=== PATIENT | male | born 1955 | race Caucasian/White ===

== ENCOUNTER 2020-03-31 12:02 | Day surgery (SDC) | payer MEDICARE ==
[~2020-03-31] VITALS: Ht 188 cm; Wt 92.2 kg
[~2020-03-31 12:02] MED LIST: Aspir 8181 MG PO; FENO145 PO; Humalog100 UNIT/1 SC; LOSA25 PO; ONGLYZA5 MG PO; Pravastatin Sod80 MG PO
== END 2020-03-31 15:01 | disposition home or self-care (01) ==
LOC: ORSCSDS 12:02
PROVIDERS: Internal Medicine Gastroenterology
PROC: 0DBL8ZX Excision of Transverse Colon, Via Natural or Artificial Opening Endoscopic, Diagnostic (ICD-10-PCS; principal; 2020-03-31 13:30)
DX: Z12.11 Encounter for screening for malignant neoplasm of colon (principal); D12.3 Benign neoplasm of transverse colon; K64.8 Other hemorrhoids; E11.9 Type 2 diabetes mellitus without complications; I10 Essential (primary) hypertension; Z87.891 Personal history of nicotine dependence; Z79.82 Long term (current) use of aspirin; Z79.4 Long term (current) use of insulin; Z79.899 Other long term (current) drug therapy
CPT/HCPCS: 82947; 88305; J2704; J7120

== ENCOUNTER 2021-05-08 09:27 | Emergency (ER) | payer MEDICARE ==
[~2021-05-08] VITALS: Ht 188 cm; Wt 90.7 kg
[2021-05-08 09:59] LABS: BASOPHILS ABSOLUTE AUTO 0.08 K/mm3 (0.00-0.23); BASOPHILS PERCENT AUTO 1 % (0-2); EOSINOPHILS ABSOLUTE AUTO 0.12 K/mm3 (0.00-0.68); EOSINOPHILS PERCENT AUTO 1 % (0-6); Hematocrit 48.3 % (37.0-53.0); Hemoglobin 16.5 g/dL (13.5-17.5); IMMATURE GRAN ABSOLUTE AUTO 0.07 K/mm3 (0.00-0.10); IMMATURE GRAN PERCENT AUTO 1 % (0-1); LYMPHOCYTES ABSOLUTE AUTO 2.31 K/mm3 (0.84-5.20); LYMPHOCYTES PERCENT AUTO 18 % (21-46); MONOCYTES ABSOLUTE AUTO 0.65 K/mm3 (0.16-1.47); MONOCYTES PERCENT AUTO 5 % (4-13); Mean Corpuscular HGB 27.1 pg (26.0-34.0); Mean Corpuscular HGB Conc 34.2 g/dL (31.5-36.5); Mean Corpuscular Volume 79 fL (80-100); Mean Platelet Volume 10.9 fL (9.1-12.4); NEUTROPHILS ABSOLUTE AUTO 9.62 K/mm3 (1.96-9.15); NEUTROPHILS PERCENT AUTO 75 % (41-73); Platelet Count 115 K/mm3 (150-400); RDW Coefficient Variation 12.6 % (11.7-14.2); RDW Standard Deviation 35.5 fL (35.1-46.3); Red Blood Cell Count 6.09 M/mm3 (4.30-5.90); White Blood Cell Count 12.85 K/mm3 (4.00-11.30)
[2021-05-08 10:23] LABS: Alanine Aminotransfer (ALT/SGP 32 U/L (12-78); Albumin, Blood 4.3 g/dL (3.4-5.0); Albumin/Globulin Ratio 1.5 (0.8-1.8); Alk Phos 108 U/L (50-136); Anion Gap 7 mmol/L (6-16); Aspartate Aminotrans (AST/SGOT 18 U/L (12-37); Bilirubin, Total 0.9 mg/dL (0.1-1.0); Blood Urea Nitrogen 17 mg/dL (8-24); Bun/Creatinine Ratio 18.2 (12.0-20.0); CO2, Blood 26 mmol/L (21-32); Calcium, Blood 10.8 mg/dL (8.5-10.1); Chloride, Blood 105 mmol/L (98-108); Creatinine, Blood 0.93 mg/dL (0.60-1.20); Globulin, Blood 2.9 g/dL (2.2-4.0); Glomerular Filtration Rate >60 (60-); Glucose, Blood 163 mg/dL (70-99); Potassium, Blood 4.1 mmol/L (3.5-5.5); Sodium, Blood 138 mmol/L (136-145); Total Protein, Blood 7.2 g/dL (6.4-8.2)
[2021-05-08] MEDS ORDERED: Percocet 5-3251 EACH PO (10:56)
== END 2021-05-08 11:47 | disposition home or self-care (01) ==
LOC: ER 09:27
PROVIDERS: Physician Assistant
DX: S22.31XA Fracture of one rib, right side, initial encounter for closed fracture (principal); I10 Essential (primary) hypertension; E11.9 Type 2 diabetes mellitus without complications; Z79.4 Long term (current) use of insulin; Z79.82 Long term (current) use of aspirin; Z79.899 Other long term (current) drug therapy; Z87.891 Personal history of nicotine dependence; W19.XXXA Unspecified fall, initial encounter
CPT/HCPCS: 36415; 71101; 80053; 85025; 96374; 96375; 99284-25; A9270; J1885; J2405; J3010

== ENCOUNTER 2021-05-24 10:36 | Emergency (ER) | payer MEDICARE ==
[~2021-05-24] VITALS: Ht 182.9 cm; Wt 83.9 kg
[~2021-05-24 10:36] MED LIST changes: +Percocet 5-3251 EACH PO
[2021-05-24 11:29] LABS: Source, Urine Catheter
[2021-05-24 11:51] LABS: Appearance, Urine Clear (Clear); Bilirubin, Urine Neg (Neg); Blood, Urine Neg (Neg); Color, Urine Yellow (P-Yellow); Glucose Qualitative, Urine 2+ (Neg); Ketones, Urine 1+ (Neg); Leukocyte Esterase, Urine Neg (Neg); Nitrite, Urine Neg (Neg); Protein, Urine 1+ (Neg); Urobilinogen, Urine NORM (Normal); pH, Urine 6.5 (5.0-8.0)
== END 2021-05-24 12:32 | disposition home or self-care (01) ==
LOC: ER 10:36
PROVIDERS: Physician Assistant
DX: R33.9 Retention of urine, unspecified (principal); Z88.8 Allergy status to other drugs, medicaments and biological substances; Z88.4 Allergy status to anesthetic agent; E11.9 Type 2 diabetes mellitus without complications; I10 Essential (primary) hypertension; Z87.891 Personal history of nicotine dependence
CPT/HCPCS: 51702; 99283-25

== ENCOUNTER 2021-05-27 09:39 | Emergency (ER) | payer MEDICARE ==
[~2021-05-27] VITALS: Ht 188 cm; Wt 83.9 kg
== END 2021-05-27 10:35 | disposition home or self-care (01) ==
LOC: ER 09:39
DX: T83.098A Other mechanical complication of other urinary catheter, initial encounter (principal); I10 Essential (primary) hypertension; E11.9 Type 2 diabetes mellitus without complications; Z79.4 Long term (current) use of insulin; Z79.899 Other long term (current) drug therapy; Z87.891 Personal history of nicotine dependence
CPT/HCPCS: 99283

== ENCOUNTER → 2023-01-30 | Outpatient (CLI) | payer MEDICARE ==
[~2023-01-30] MED LIST changes: +CINA30 PO; +Crestor40 MG PO; +Flomax0.4 MG; +INSULANI; +LOSA25; +PRAM.125
== END ==
LOC: LAB SHORT 12:09 → PLD 12:09
DX: D48.5 Neoplasm of uncertain behavior of skin (principal)
CPT/HCPCS: 88305

== ENCOUNTER → 2023-02-27 | Outpatient (CLI) | payer MEDICARE | LOC: LAB 14:26 → LAB SHORT 14:26 | DX: C44.519 Basal cell carcinoma of skin of other part of trunk (principal) | CPT/HCPCS: 88305 ==

== ENCOUNTER → 2023-03-28 | Outpatient (CLI) | payer MEDICARE ==
[2023-03-28 13:37] LABS: Microalbumin, Random Urine 38.2 mg/L (0.000-20.000)
== END ==
LOC: LAB SHORT 08:00 → LAB 08:00
PROVIDERS: Physician Assistant
DX: E11.65 Type 2 diabetes mellitus with hyperglycemia (principal); Z79.4 Long term (current) use of insulin
CPT/HCPCS: 82043; 82570

== ENCOUNTER 2024-12-27 01:02 | Inpatient (IN) | payer MEDICARE ==
[~2024-12-27] VITALS: Ht 188 cm; Wt 83.9 kg
[~2024-12-27 01:02] MED LIST changes: -INSULANI; +INSULANI SC
[2024-12-27] MEDS ORDERED: GABA300 PO (01:21)
[2024-12-27] MEDS ORDERED: BASAGLAR K100 UNIT/1 SC (01:23)
[2024-12-27] MEDS ORDERED: PRAM.125 PO (01:23)
[2024-12-27] MEDS ORDERED: EZET10 PO (01:24)
[2024-12-27 01:31] LABS: BASOPHILS ABSOLUTE AUTO 0.04 K/mm3 (0.00-0.23); BASOPHILS PERCENT AUTO 0 % (0-2); EOSINOPHILS ABSOLUTE AUTO 0.00 K/mm3 (0.00-0.68); EOSINOPHILS PERCENT AUTO 0 % (0-6); Hematocrit 42.4 % (37.0-53.0); Hemoglobin 14.4 g/dL (13.5-17.5); IMMATURE GRAN ABSOLUTE AUTO 0.06 K/mm3 (0.00-0.10); IMMATURE GRAN PERCENT AUTO 0 % (0-1); LYMPHOCYTES ABSOLUTE AUTO 1.53 K/mm3 (0.84-5.20); LYMPHOCYTES PERCENT AUTO 11 % (21-46); MONOCYTES ABSOLUTE AUTO 0.84 K/mm3 (0.16-1.47); MONOCYTES PERCENT AUTO 6 % (4-13); Mean Corpuscular HGB Conc 34.0 g/dL (31.5-36.5); Mean Corpuscular Volume 79 fL (80-100); NEUTROPHILS ABSOLUTE AUTO 11.63 K/mm3 (1.96-9.15); NEUTROPHILS PERCENT AUTO 82 % (41-73); NRBC ABSOLUTE 0.00 K/mm3 (0.00-0.02); NRBC Auto 0.0 /100 WBC (0.0-0.2); Platelet Count 145 K/mm3 (150-400); RDW Coefficient Variation 12.8 % (11.7-14.2); RDW Standard Deviation 36.1 fL (35.1-46.3)
[2024-12-27 01:54] LABS: Alanine Aminotransfer (ALT/SGP 42.0 U/L (12-78); Albumin, Blood 3.4 g/dL (3.4-5.0); Albumin/Globulin Ratio 1.1 (0.8-1.8); Anion Gap 13.0 mmol/L (3-11); Aspartate Aminotrans (AST/SGOT 15.0 U/L (12-37); Bilirubin, Total 0.9 mg/dL (0.1-1.0); Blood Urea Nitrogen 19.0 mg/dL (8-24); CO2, Blood 22.0 mmol/L (21-32); Calcium, Blood 9.9 mg/dL (8.5-10.1); Chloride, Blood 101.0 mmol/L (98-108); Creatinine, Blood 1.08 mg/dL (0.60-1.20); Globulin, Blood 3.0 g/dL (2.2-4.0); Glucose, Blood 336.0 mg/dL (70-99); Potassium, Blood 4.2 mmol/L (3.5-5.5); Sodium, Blood 132.0 mmol/L (136-145); Total Protein, Blood 6.4 g/dL (6.4-8.2)
[2024-12-27 01:58] LABS: pH Blood Venous 7.53 (7.34-7.37)
[2024-12-27] MEDS ORDERED: NS 1,000 ML IV SCH ×2 (02:10→04:25)
[2024-12-27 02:27] LABS: Source, Urine Clean Catch
[2024-12-27 02:50] LABS: Bilirubin, Urine Neg (Neg); Glucose Qualitative, Urine 4+ (Neg); Ketones, Urine 3+ (Neg); Leukocyte Esterase, Urine 3+ (Neg); Protein, Urine 2+ (Neg); Specific Gravity, Urine 1.015 (1.003-1.022); Urobilinogen, Urine NORM (Normal)
[2024-12-27 03:01] LABS: Color, Urine Pale Yellow (P-Yellow)
[2024-12-27 03:03] LABS: White Blood Cells, Urine 50-100 /hpf (0-5)
[2024-12-27] MEDS ORDERED: CefTRIAXone Sodium 1,000 MG in NS 50 ML IV ONE (03:05)
[2024-12-27] MEDS ORDERED: Insulin Human Regular 100 UNIT in NS 100 ML IV SCH (03:05)
[2024-12-27] MEDS ORDERED: HYDROmorphone HCl/Pf 1MG SYR IV PRN (04:40)
[2024-12-27] MEDS ORDERED: Ondansetron HCl 2 MG / ML 2ML Vial IV PRN (04:50)
[2024-12-27] MEDS ORDERED: NS 1,000 ML IV ONE (05:05)
[2024-12-27] MEDS ORDERED: CefTRIAXone Sodium 1,000 MG in NS 100 ML IV ONE ×2 (05:25→06:30)
[2024-12-27] MEDS ORDERED: MetroNIDAZOLE 500MG/NS 100 ml 100 ML IV SCH (05:27)
[2024-12-27 05:59] VITALS: BP 167/87
[2024-12-27] MEDS ORDERED: Insulin Regular 100 UNIT/ML 10ML Vial SC SCH (06:00)
[2024-12-27] MEDS ORDERED: NS 250 ML IV PRN (06:05)
--- NOTE | 2024-12-27 06:29 | NUR ---
PT ARRIVED @0555 TO THE MEDICAL FLOOR ON A GURNEY AND WAS SLID TO THE HOSPITAL BED WITH FOUR STAFF MEMBERS. PT BROUGHT ALL HIS BELONINGS WITH HIM. CHARGE NURSE RANGEL COMPLETED THE ADMISSION ASSESSMENT, SKIN CHECK WITH THIS [employer] EXECUTIVE. BED AT THE LOWEST POSITION, EDUCATED AD SETTER LIGHT AND FALL PRECAUTIONS. CALL LIGHT W/I REACH.
[2024-12-27 06:50] LABS: BASOPHILS ABSOLUTE AUTO 0.02 K/mm3 (0.00-0.23); BASOPHILS PERCENT AUTO 0 % (0-2); EOSINOPHILS ABSOLUTE AUTO 0.01 K/mm3 (0.00-0.68); EOSINOPHILS PERCENT AUTO 0 % (0-6); Hematocrit 42.5 % (37.0-53.0); Hemoglobin 14.4 g/dL (13.5-17.5); IMMATURE GRAN ABSOLUTE AUTO 0.04 K/mm3 (0.00-0.10); IMMATURE GRAN PERCENT AUTO 0 % (0-1); LYMPHOCYTES ABSOLUTE AUTO 1.98 K/mm3 (0.84-5.20); LYMPHOCYTES PERCENT AUTO 14 % (21-46); MONOCYTES ABSOLUTE AUTO 0.96 K/mm3 (0.16-1.47); MONOCYTES PERCENT AUTO 7 % (4-13); Mean Corpuscular HGB Conc 33.9 g/dL (31.5-36.5); Mean Corpuscular Volume 79 fL (80-100); NEUTROPHILS ABSOLUTE AUTO 10.72 K/mm3 (1.96-9.15); NEUTROPHILS PERCENT AUTO 78 % (41-73); NRBC ABSOLUTE 0.00 K/mm3 (0.00-0.02); NRBC Auto 0.0 /100 WBC (0.0-0.2); Platelet Count 153 K/mm3 (150-400); RDW Coefficient Variation 13.0 % (11.7-14.2); RDW Standard Deviation 36.7 fL (35.1-46.3)
[2024-12-27 07:05] LABS: Alanine Aminotransfer (ALT/SGP 40.0 U/L (12-78); Albumin, Blood 3.7 g/dL (3.4-5.0); Albumin/Globulin Ratio 1.2 (0.8-1.8); Anion Gap 11.0 mmol/L (3-11); Aspartate Aminotrans (AST/SGOT 14.0 U/L (12-37); Bilirubin, Total 0.8 mg/dL (0.1-1.0); Blood Urea Nitrogen 20.0 mg/dL (8-24); CO2, Blood 24.0 mmol/L (21-32); Calcium, Blood 9.9 mg/dL (8.5-10.1); Chloride, Blood 103.0 mmol/L (98-108); Creatinine, Blood 1.03 mg/dL (0.60-1.20); Globulin, Blood 3.1 g/dL (2.2-4.0); Glucose, Blood 267.0 mg/dL (70-99); Potassium, Blood 3.9 mmol/L (3.5-5.5); Sodium, Blood 134.0 mmol/L (136-145); Total Protein, Blood 6.8 g/dL (6.4-8.2)
[2024-12-27 07:43] VITALS: BP 176/93
[2024-12-27] MEDS ORDERED: Enoxaparin 40 MG/0.4 ML SYR SC SCH (09:00)
--- NOTE | 2024-12-27 13:27 | NUR ---
CALLED AND SPOKE WITH DR. SALAS ABOUT POSSIBLE SURGERY WITH NO PLANS FOR TODAY. CALLED DR. BURTON WITH UPDATE AND RECEIVED A DIET ORDER. REQUESTING WATER AT THIS TIME.
[2024-12-27 15:30] VITALS: BP 185/101
--- NOTE | 2024-12-27 17:47 | NUR ---
PT PLEASANT TODAY. PLAN FOR HYDASCAN TOMORROW AM. PT TO BE NPO, INCLUDING NO MEDS, H2O, OR PAIN MEDS FOR HYDASCAN. STARTS MIDNITE. DR SALAS IN ROOM THIS IS TYPED. WILL WAIT UNTIL HYDASCAN RESULTS TO MAKE PLAN. PT ON CLEAR LIQUID DIET AT THIS TIME UNTIL MIDNITE. NO OTHER CONCERNS NOTED. BED IN LOW POSITION, CALL LITE IN REACH, CALLS APPROP
[2024-12-27 18:00] VITALS: BP 173/95
[2024-12-27] MEDS ORDERED: HUMALOG MI100 UNIT/1 SC (18:25)
[2024-12-27 19:41] VITALS: BP 173/97
[2024-12-27 22:15] VITALS: BP 182/98
--- NOTE | 2024-12-27 22:52 | NUR ---
@9858 DR. CAMPOS, ON-CALL HOSPITALIST WAS NOTIFIED R/T PT'S BP, PER CONVERSTATION, DR. CAMPOS WILL LOOK INTO IT. ALSO, NEW ORDER FOR MELATONIN PO 5MG QHS PRN. ENTERED TO [facility], SEE EMAR.
--- NOTE | 2024-12-28 03:35 | NUR ---
SHIFT SUMMARY PT IS NPO SINCE MIDNIGHT. PLANNED HIDASCAN THIS AM APPROXIMATELY @0830. PT DENIES PAIN. IV ABX INFUSED ORDERED. NEW ORDER FOR MELATONIN ADMINISTERED AT HS PER PT REQUEST. PT VOIDING WELL, ACUTE SUAREZ DRAINING YELLOW COLOR URINE. BED AT THE LOWEST POSITION, CALL LIGHT W/I REACH. PT IS A/O X4, ABLE TO MAKE HIS NEEDS KNOWN, PLEASANT AND COOPERATIVE WITH CARE.
[2024-12-28 05:50] LABS: BASOPHILS ABSOLUTE AUTO 0.04 K/mm3 (0.00-0.23); BASOPHILS PERCENT AUTO 0 % (0-2); EOSINOPHILS ABSOLUTE AUTO 0.03 K/mm3 (0.00-0.68); EOSINOPHILS PERCENT AUTO 0 % (0-6); Hematocrit 41.8 % (37.0-53.0); Hemoglobin 14.3 g/dL (13.5-17.5); IMMATURE GRAN ABSOLUTE AUTO 0.03 K/mm3 (0.00-0.10); IMMATURE GRAN PERCENT AUTO 0 % (0-1); LYMPHOCYTES ABSOLUTE AUTO 2.11 K/mm3 (0.84-5.20); LYMPHOCYTES PERCENT AUTO 15 % (21-46); MONOCYTES ABSOLUTE AUTO 1.12 K/mm3 (0.16-1.47); MONOCYTES PERCENT AUTO 8 % (4-13); Mean Corpuscular HGB Conc 34.2 g/dL (31.5-36.5); Mean Corpuscular Volume 79 fL (80-100); NEUTROPHILS ABSOLUTE AUTO 10.43 K/mm3 (1.96-9.15); NEUTROPHILS PERCENT AUTO 76 % (41-73); NRBC ABSOLUTE 0.00 K/mm3 (0.00-0.02); NRBC Auto 0.0 /100 WBC (0.0-0.2); Platelet Count 128 K/mm3 (150-400); RDW Coefficient Variation 13.1 % (11.7-14.2); RDW Standard Deviation 37.3 fL (35.1-46.3)
[2024-12-28] MEDS ORDERED: Neurontin300 MG PO (05:57)
[2024-12-28] MEDS ORDERED: CefTRIAXone Sodium 2,000 MG in NS 100 ML IV SCH (06:00)
[2024-12-28 06:14] VITALS: BP 156/96
[2024-12-28 06:25] LABS: Alanine Aminotransfer (ALT/SGP 31.0 U/L (12-78); Albumin, Blood 3.4 g/dL (3.4-5.0); Albumin/Globulin Ratio 1.1 (0.8-1.8); Anion Gap 9.0 mmol/L (3-11); Aspartate Aminotrans (AST/SGOT 21.0 U/L (12-37); Bilirubin, Total 0.6 mg/dL (0.1-1.0); Blood Urea Nitrogen 18.0 mg/dL (8-24); CO2, Blood 24.0 mmol/L (21-32); Calcium, Blood 9.6 mg/dL (8.5-10.1); Chloride, Blood 103.0 mmol/L (98-108); Creatinine, Blood 0.7 mg/dL (0.60-1.20); Globulin, Blood 3.0 g/dL (2.2-4.0); Glucose, Blood 177.0 mg/dL (70-99); Potassium, Blood 3.2 mmol/L (3.5-5.5); Sodium, Blood 133.0 mmol/L (136-145); Total Protein, Blood 6.4 g/dL (6.4-8.2)
[2024-12-28 07:26] VITALS: BP 164/103
--- NOTE | 2024-12-28 15:43 | NUR ---
[address] SALAS PATIENT HAD NORMAL HIDA SCAN AND FROM HIS SURGICAL STANDPOINT CAN DISCHARGE THIS INFORMATION COMMUNICATED TO BEDSIDE RN ALICIA OREILLY
[2024-12-28] MEDS ORDERED: DOXY100 PO (15:57)
--- NOTE | 2024-12-28 17:00 | NUR ---
PT DISCHARGED TO HOME. DISCHARGE INSTRUCTIONS PROVIDED AND EDUCATED ON AT TIME OF DISCHARGE. ALL VALUABLES RETURNED AND SENT HOME WITH THE PT. SUAREZ DISCONTINUED PER DR SALDANA AND PT VOIDED PRIOR TO DISCHARGE.
--- NOTE | 2024-12-28 17:06 | NUR ---
1655 PT VOIDED 50 ML ARMEN URINE, REQUESTS DISCHARGE AT THIS TIME. SPOKE WITH PATIENT RE VOIDINGAND IF UNABLE TO VOID AND ABD DISCOMFORT TO RETURN TO THE ER. PT STATES HE HAS INCONTINENCE AND WEARS DEPENDS AND IS NOT CONCERNED THAT HE WILL BE UNABLE TO VOID
[2024-12-29 17:17] LABS: HIV 1,2 COMBO ANTIGEN/ANTIBODY Negative (Negative)
== END 2024-12-28 17:05 | disposition home or self-care (01) | DRG 872 ==
LOC: ER 01:02 → MEDS 01:03
PROVIDERS: Emergency Medicine; Internal Medicine; ADMIT Student in an Organized Health Care Education/Training Program
PROC: 3E03329 Introduction of Other Anti-infective into Peripheral Vein, Percutaneous Approach (ICD-10-PCS; principal; 2024-12-27)
PROC: 0T9B70Z Drainage of Bladder with Drainage Device, Via Natural or Artificial Opening (ICD-10-PCS; 2024-12-27)
DX: A41.9 Sepsis, unspecified organism (principal); N39.0 Urinary tract infection, site not specified; E87.29 Other acidosis; I10 Essential (primary) hypertension; E11.40 Type 2 diabetes mellitus with diabetic neuropathy, unspecified; G25.81 Restless legs syndrome; E11.65 Type 2 diabetes mellitus with hyperglycemia; E86.0 Dehydration; N40.1 Benign prostatic hyperplasia with lower urinary tract symptoms; K62.89 Other specified diseases of anus and rectum; K59.00 Constipation, unspecified; K81.9 Cholecystitis, unspecified; K82.8 Other specified diseases of gallbladder; R33.8 Other retention of urine; R65.20 Severe sepsis without septic shock; Z87.442 Personal history of urinary calculi; Z98.42 Cataract extraction status, left eye; Z79.4 Long term (current) use of insulin; Z79.85 Long-term (current) use of injectable non-insulin antidiabetic drugs; Z79.899 Other long term (current) drug therapy; Z98.41 Cataract extraction status, right eye; Z98.890 Other specified postprocedural states; Z87.19 Personal history of other diseases of the digestive system; Z87.891 Personal history of nicotine dependence
CPT/HCPCS: 36415; 51702; 51798; 74177; 76705; 78226; 80053; 81001; 82010; 82803; 82947; 83605; 83690; 85025; 86592; 87077; 87086; 87186; 87389; 93005; 93010; 96361; 96365-59; 96366; 96367; 96375; 96376; 97161; 97165; 97530; 97535; 99285-25; A9270; A9537; G0378; J0696; J1171; J1815; J3480; J7030; Q9967